=== PATIENT | female | born 1935 | race Two or more races ===

== ENCOUNTER 2020-02-26 09:27 | Emergency (ER) | payer OTHER ==
[~2020-02-26] VITALS: Ht 165.1 cm; Wt 68.0 kg
[~2020-02-26 09:27] MED LIST: AMLODIPINE BES2.5 MG; LISINOPRIL 20MG; ZOCOR 20MG
[2020-02-26] MEDS ORDERED: LIPITOR40 MG (09:52)
[2020-02-26] MEDS ORDERED: [UNRECOGNIZED DRUG - OTHER] (09:53)
[2020-02-26] MEDS ORDERED: ZESTRIL5 MG PO (09:53)
[2020-02-26] MEDS ORDERED: LASIX20 MG (09:53)
[2020-02-26] MEDS ORDERED: OSTERA TABLET1 EACH PO (09:54)
[2020-02-26] MEDS ORDERED: ARICEPT10 MG PO (09:54)
[2020-02-26] MEDS ORDERED: DAFLONEX-XL 11300 MG PO (09:54)
== END 2020-02-26 12:52 | disposition home or self-care (01) ==
LOC: ER 09:27
DX: S62.646A Nondisplaced fracture of proximal phalanx of right little finger, initial encounter for closed fracture (principal); S40.011A Contusion of right shoulder, initial encounter; S00.83XA Contusion of other part of head, initial encounter; W18.39XA Other fall on same level, initial encounter; Y93.89 Activity, other specified; Y92.018 Other place in single-family (private) house as the place of occurrence of the external cause; Y99.8 Other external cause status